=== PATIENT | female | born 1940 | race Caucasian/White ===

== ENCOUNTER 2023-10-13 17:07 | Emergency (ER) | payer MEDICARE, BC, SELFPAY ==
[2023-10-13 17:09] VITALS: BP 126/42
[2023-10-13 17:12] VITALS: BMI 28.9
[2023-10-13 17:14] VITALS: BP 126/42
[2023-10-13 17:20] LABS: % Basophils 0.7 % (0-2); % Eosinophils 5.6 % (0-6); % Immature Granulocytes 0.7 % (0-0.5); % Lymphocytes 23.6 % (20.5-51.1); % Monocytes 9.2 % (1.7-9.3); % Neutrophils 60.2 % (42.2-75.2); Absolute Eosinophils 0.3 10^3/uL (0-0.7); Absolute Lymphocytes 1.3 10^3/uL (1.2-3.4); Absolute Monocytes 0.5 10^3/uL (0.1-0.6); Absolute Neutrophils 3.2 10^3/uL (1.4-6.5); Hematocrit 36.3 % (37.0-47.0); Mean Corp Hgb Conc. 35.8 g/dL (33.0-37.0); Mean Corpuscular Hgb 33.9 pg (27.0-31.0); Mean Corpuscular Volume 94.5 fL (81.0-99.0); Mean Platelet Volume 9.9 fL (7.4-10.4); Nucleated Red Blood Cells % 0 %; Platelet Count 220 10^3/uL (130-400); Red Blood Cell Count 3.84 10^6/uL (4.20-5.40); Red Cell Dist. Width 13.9 % (11.5-14.5); White Blood Cell Count 5.3 10^3/uL (4.8-10.8)
[2023-10-13 17:32] LABS: ALT (SGPT) 21 U/L (0-35); AST (SGOT) 29 U/L (14-36); Albumin 4.3 g/dl (3.5-5.0); Alkaline Phosphatase 102 U/L (38-126); Blood Urea Nitrogen 13 mg/dl (7-17); Calcium 10.4 mg/dl (8.4-10.2); Carbon Dioxide 22 mmol/L (22-30); Chloride 105 mmol/L (98-107); Estimated Creatinine Clearance 55 ml/min; Glucose 143 mg/dl (70-99); Potassium 4.4 mmol/L (3.5-5.1); Sodium 137 mmol/L (135-145); Total Bilirubin 1.4 mg/dl (0.2-1.3); Total Protein 6.4 g/dl (6.3-8.2); eGFR > 60.00
[2023-10-13 17:42] LABS: Troponin I < 0.012 ng/ml
[2023-10-13 18:00] VITALS: BP 97/46
[2023-10-13 19:00] VITALS: BP 114/65
--- NOTE | 2023-10-13 19:48 | ED.GENMED ---
History of Present Illness
General
Chief Complaint: Fainting Sensation
Source: patient and family
Time Seen by Provider: 10/13/23 19:34
Travel History
Have you had any contact with someone who has COVID-19?: No
Do you have any symptoms of coronavirus? Fever > 100 degrees, chills, cough, shortness of breath, sore throat, loss of taste or smell, muscle aches, or headache?: No
History of Present Illness
History of Present Illness:
83-year-old female who presents here with her son after having a near syncopal event while at a high school graduation outside. She was feeling well earlier today. They arrived at the graduation approximately 3 PM, and while sitting in the
bleachers in the hot sun she started to feel nauseous followed by episodes of nonbloody vomiting associated with generalized weakness and lightheadedness. There was no actual syncopal event, head strike, loss of consciousness, seizure-like
activity, or other abnormalities. Patient was brought to the emergency department via EMS and IV fluids were initiated. Patient states she feels perfectly well now. She denies now or recently having chest pain or pressure, palpitations, dyspnea,
leg swelling, recent immobilization, recent trauma, fever, chills, numbness, tingling, focal weakness, change in speech, or other complaints.
Past History
Past History
ED Past Medical History: Cancer (breast), HTN and Other (Raynaud's, hypercholesterolemia, gout)
ED Past Surgical History: Other (Cataract, mastectomy)
Social History
Tobacco: Former smoker
Alcohol: Occasional
Drug: None
Personal:
Living: alone
Phy Exam
Physical Exam
Physical Exam:
GENERAL: Alert , in no apparent distress
EYE: pupils equal and reactive, EOMI, no photophobia
NECK: Supple, no significant adenopathy.
ENT: o/p clr, mmm.
CARDIAC: Regular rate and rhythm, no murmurs noted.
LUNGS: Clear breath sounds bilaterally, no acute respiratory distress, no wheezes/rales/rhonchi
ABDOMEN: Soft, without focal tenderness, no r/g, no cvat
NEUROLOGICAL: Alert and oriented, no focal neuro deficits, [id number] normal, motor 5 out of 5, cranial nerves II through XII intact, sensation intact to light touch
SKIN: Warm and dry, skin intact.
MUSCULOSKELETAL: No edema, well perfused.
PSYCH: Normal and appropriate interaction.
Course
Orders/Labs/Results
Orders:
Orders
10/13/23 17:09
Electrocardiogram (*1) Urgent
Reason for Study: Syncope
EKG- Treatment ONCE
10/13/23 17:11
Complete Blood Count/With Diff Urgent
Comprehensive Metabolic Panel Urgent
Troponin I Urgent
Abnormal Lab Results
10/13/23
17:11
RBC 3.84 L 10^6/uL
(4.20-5.40)
Hct 36.3 L %
(37.0-47.0)
MCH 33.9 H pg
(27.0-31.0)
Immature Gran % 0.7 H %
(0-0.5)
Glucose 143 H mg/dl
(70-99)
Calcium 10.4 H mg/dl
(8.4-10.2)
Total Bilirubin 1.4 H mg/dl
(0.2-1.3)
10/13/23 17:11
10/13/23 17:11
Vital Signs
Initial and Last Documented VS:
Initial Vital Signs
BP
126/42
10/13/23 17:09
Last Documented Vital Signs
Temp Pulse Resp BP Pulse Ox
99.0 F 77 11 114/65 97
10/13/23 17:14 10/13/23 19:30 10/13/23 19:30 10/13/23 19:00 10/13/23 19:30
*Critical Care Note
Total Time (30-74mins, 75-104mins- exclusive of procedures): Not Applicable
Update Note
Update Note:
Patient presents to the Emergency Department with ___near syncope
Number and Complexity of Problems Addressed at the Encounter
� Chronic conditions affecting care:
� Acute Exacerbation and/or Progression of Chronic Illness:
� Differential Diagnosis includes: But not limited to dehydration, electrolyte disorder, heat related illness, vasovagal event, etc. etc.
Amount and/or Complexity of Data to be Reviewed and Analyzed
� I performed an independent evaluation of and my interpretation is:
EKG: Read by me, normal sinus rhythm, normal rate, normal axis, no acute ischemia
CT:
Xrays:
Laboratory Studies: Generally unremarkable
Other:
� Review of other/old records reveals: None available
� Clinical information was obtained by an independent historian: Son who is at bedside
� Prescriptions/Medications Considered but not given:
� Further testing considered but not performed:
Risk of Complications and/or Morbidity or Mortality of Patient Management
� Social determinants of health affecting care:
� Discussion with other providers (PCP, Hospitalists, Consultants, etc):
� Escalation of care including admission/observation vs risk of discharge considered: 7:55 PM patient awake alert nontoxic well-appearing without symptoms. Based on history, physical, and evaluation here, suspect likely related
to exposure to heat. Patient would like to go home and will stay with her son overnight. Discussed with both importance of follow-up and reasons to return to the ER
ED Attending Note
-
Portions of this chart may have been created with voice recognition software.� Occasional wrong word or��sound alike� substitutions may have occurred due to the inherent limitations of voice recognition software.
Discharge Plan
Departure
Patient Disposition: Home (Routine Discharge)
Date of Disposition: 10/13/23
Time of Disposition: 19:55
Patient with high blood pressure during this ER visit?: Yes
Condition: Good
Discharge Problem:
Near syncope
Instructions: Near Fainting (DC), BLOOD PRESSURE
Activity Restrictions/Additional Instructions:
IF YOU DEVELOP DIZZINESS, CHEST PAIN, PALPITATIONS, SHORTNESS OF BREATH, DIZZINESS, OR OTHER WORRISOME SIGNS, PLEASE RETURN TO THE ER IMMEDIATELY.
Interventions
Interventions:
*Risk Screen - Suicide Last Done: 10/13/23 17:16
*General Assessment Last Done: 10/13/23 17:16
*Neglect/Abuse Screening Last Done: 10/13/23 17:16
ED- Fall Risk Assessment Last Done: 10/13/23 17:16
*ED COVID-19 Vaccine History Last Done: 10/13/23 17:15
ED- Cardiac Assessment Last Done: 10/13/23 17:16
ED- Neurological Assessment Last Done: 10/13/23 17:16
Discharge Date and Time
Print Language: [id number]
[2023-10-13 20:00] VITALS: BP 126/56
== END 2023-10-13 20:30 | disposition home or self-care (01) ==
LOC: EMR 17:07
PROVIDERS: Student in an Organized Health Care Education/Training Program; EMERGENCY PHYSICIAN Emergency Medicine
DX: R55 Syncope and collapse (principal); I10 Essential (primary) hypertension; I73.00 Raynaud's syndrome without gangrene; E78.00 Pure hypercholesterolemia, unspecified; Z87.891 Personal history of nicotine dependence
CPT/HCPCS: 99283; 80053; 84484; 85025; 93005